=== PATIENT | female | born 1960 | race Caucasian/White ===

== ENCOUNTER 2017-10-23 11:22 | Day surgery (SDC) | payer OTHER ==
[2017-10-20 09:46] VITALS: BMI 27.1
[2017-10-23] MEDS ORDERED: PROPOFOL 20 ML ONE ×4 (11:31→12:51)
[2017-10-23 11:44] VITALS: TEMP 98.3
[2017-10-23 15:35] VITALS: BP 121/74; PULSE 75
== END 2017-10-23 13:35 | disposition home or self-care (01) ==
LOC: FASU-ENDO 11:22
PROVIDERS: ATTEND Internal Medicine Gastroenterology
PROC: 0DBN8ZX Excision of Sigmoid Colon, Via Natural or Artificial Opening Endoscopic, Diagnostic (ICD-10-PCS; principal; 2017-10-23 12:38)
DX: Z86.010 Personal history of colon polyps (principal); K64.4 Residual hemorrhoidal skin tags; K64.8 Other hemorrhoids; D12.5 Benign neoplasm of sigmoid colon; D12.7 Benign neoplasm of rectosigmoid junction
CPT/HCPCS: 88305-TC